=== PATIENT | male | born 1990 | race Caucasian/White ===

== ENCOUNTER 2024-01-24 20:23 | Emergency (ER) | payer BC, SELFPAY ==
[2024-01-24 20:25] VITALS: BP 169/108
--- NOTE | 2024-01-24 22:22 | ED.GENMED ---
History of Present Illness
General
Chief Complaint: Abdominal Pain
Source: patient
Exam Limitations: none
Time Seen by Provider: 01/24/24 21:58
Travel History
Have you had any contact with someone who has COVID-19?: No
Do you have any symptoms of coronavirus? Fever > 100 degrees, chills, cough, shortness of breath, sore throat, loss of taste or smell, muscle aches, or headache?: No
History of Present Illness
History of Present Illness:
This is a 33 year old male that comes in with c/o left flank pain and SOB. States that he was at work and started with pain around 8pm. State that the pain has been constant since that time. state that he also had left arm numbness and he felt like
his hand was cold. States that he also felt he was having trouble breathing and had to breath through his mouth as he felt he was not getting enough air through his nose. States that occasionally he had some left chest pain with the SOB. Denies any
fever, chills, abd pain, nausea, vomiting, diarrhea, headache, dizziness, urinary burning.
Past History
Past History
ED Past Medical History: Asthma and Other (Eczema)
ED Past Surgical History: None
Social History
Tobacco: Non-smoker
Alcohol: None
Personal: Single
Living: with family
Employment: Employed
Review of Systems
Review of Systems
All Other Systems: ROS reviewed and negative except as documented in HPI and ROS
Constitutional: Reports no symptoms; Denies fever or chills
EENT: Reports no symptoms
Respiratory: Reports trouble breathing; Denies cough
Cardiac: Reports chest pain
ABD/GI: Reports no symptoms; Denies abdominal pain, nausea, vomiting or diarrhea
: Reports no symptoms; Denies dysuria, frequency or urgency
Musculoskeletal: Reports no symptoms
Skin: Reports no symptoms
Neurological: Reports no symptoms; Denies dizzy or headache
Psychiatric: Reports no symptoms
Phy Exam
General Physical Exam
General Presentation: well appearing and no apparent distress
General age: appears stated age
General Skin: warm and dry
General Habitus: normal
General Mental: alert
General Hydration: appears well hydrated
ENT Exam
ENT Exam: TM's normal, pharynx normal and neck supple
Eye Exam
Eye Exam: EOMI
Cardiovascular Exam
Cardiovascular Exam: regular rate/rhythm, no edema, no murmur and normal peripheral pulses
Pulmonary Exam
Pulmonary Exam: lungs clear, no respiratory distress, no rales, chest non tender, no crackles, no rhonchi, no wheezing and no cough
Gastrointestinal Exam
Gastrointestinal Exam: normal bowel sounds, non tender, soft, no organomegaly, no pulsatile mass and non distended
Musculoskeletal Exam
Musculoskeletal Exam: full ROM and no edema
Skin Exam
Skin Exam: normal color, warm/dry, no rash and no petechia
Psychiatric Exam
Psychiatric Exam: normal mood/affect
Course
Orders/Labs/Results
Orders:
Orders
01/24/24 20:27
EKG [Electrocardiogram (*1)] Urgent
Reason for Study: Tachycardia
01/24/24 20:28
EKG- Treatment ONCE
01/24/24 22:22
CR Chest - 2 Views Urgent
Comment:
Reason For Exam: SOB
01/24/24 22:29
Urinalysis Reflex To Culture Urgent
Ketorolac [Toradol] 30 mg IV NOW STA
01/24/24 22:35
Complete Blood Count/With Diff Urgent
Comprehensive Metabolic Panel Urgent
D-Dimer Urgent
Troponin I Urgent
Abnormal Lab Results
01/24/24
22:35
WBC 11.6 H 10^3/uL
(4.8-10.8)
Absolute Neuts (auto) 9.2 H 10^3/uL
(1.4-6.5)
Absolute Monos (auto) 0.7 H 10^3/uL
(0.1-0.6)
Neutrophils % 78.7 H %
(42.2-75.2)
Lymphocytes % 12.1 L %
(20.5-51.1)
Glucose 101 H mg/dl
(70-99)
01/24/24 22:35
01/24/24 22:35
WBC slightly elevated. Glucose nonfasting. D-dimer <0.27, Troponin <0.012,
Vital Signs
Initial and Last Documented VS:
Initial Vital Signs
Temp Pulse Resp BP Pulse Ox
98.4 F 141 16 169/108 98
01/24/24 20:25 01/24/24 20:25 01/24/24 20:25 01/24/24 20:25 01/24/24 20:25
Last Documented Vital Signs
Temp Pulse Resp BP Pulse Ox
98.4 F 141 16 169/108 98
01/24/24 20:25 01/24/24 20:25 01/24/24 20:25 01/24/24 20:25 01/24/24 20:25
MDM/Problems Addressed
Differential Diagnosis Includes:
PE, PNA, Musculoskeletal
MDM/Problems Addressed:
This is a 33 year old male that comes in with c/o left sided chest/flank pain. States that he feels like he is not getting enough air and that his left arm felt like there were pins and needles and his hand was cold.
Will check labs, urine. Chest X-ray and give Toradol
back into see patient. Explained that his D-dimer is negative along with his Troponin. Chest x-ray is normal. This is most likely musculoskeletal in nature. Patient works in a [employer]. Patient refused pain medication. Patient states that he is
fine when he is just laying there but when he moves he has some discomfort. This also is more consistent with Musculoskeletal pain. Will have patient use Tylenol or Ibuprofen for pain . Follow up with the PCP. Return with any concerns.
Chronic conditions affecting care:
NA
Acute Exacerbation and/or Progression of Chronic Illness:
NA
*Radiology
Radiology exam reviewed: preliminary read by ED provider (Chest- Negative for active disease)
*Pulse Oximetry
Patient hypoxic: no
*EKG
Interpreted by ED Provider?: Yes
Heart Rate: 108
Rate: tachycardiac
Rhythm: sinus tachycardia
[place]: normal axis
Interval: normal interval
Ischemia: non-specific ST changes (V4, V5, V6)
*Critical Care Note
Total Time (30-74mins, 75-104mins- exclusive of procedures): Not Applicable
ED Attending Note
-
Portions of this chart may have been created with voice recognition software.� Occasional wrong word or��sound alike� substitutions may have occurred due to the inherent limitations of voice recognition software.
Discharge Plan
Departure
Patient Disposition: Home (Routine Discharge)
Date of Disposition: 01/25/24
Time of Disposition: 00:19
Patient with high blood pressure during this ER visit?: Yes
Condition: Good
Covid-19: Not Applicable
Discharge Problem:
Musculoskeletal chest pain
Instructions: BLOOD PRESSURE, Musculoskeletal Pain
Prescriptions:
No Action
fluticasone propion-salmeterol [Advair Diskus] 1 DISK blister with device
1 puff inhalation R Q12 Qty: 1 1RF
albuterol sulfate [Proventil HFA] 90 MCG/PUFF HFA aerosol inhaler
1 puff inhalation Q4HPRN PRN (Reason: prn for shortness of breath) Qty: 1 0RF
prednisone 10 MG tablet
10 mg PO .TAPER Qty: 45 0RF
Rx Instructions:
Take 50mg daily x3days, 40mg daily x3days,
30mg daily x3days, 20mg daily x3days,
10mg daily x3days
triamcinolone acetonide 1 APPLIC cream
1 applic topical BID Qty: 1 1RF
hydroxyzine HCl 25 MG tablet
25 mg PO TID Qty: 21 0RF
Referrals:
NONE,* [Family Provider] -
Activity Restrictions/Additional Instructions:
As discussed, your blood work shows that your WBC are only very slightly elevated. This can happen with stress. Your Chest X-ray is normal along with your Troponin which is specific for the heart and your D-dimer. You may use Tylenol or Ibuprofen
for any pain. Follow up with the family doctor for recheck. IF YOU HAVE INCREASED OR CHANGING PAIN, OR YOU HAVE ANY OTHER CONCERNS PLEASE RETURN TO THE EMERGENCY ROOM.
Interventions
Interventions:
*Risk Screen - Suicide Last Done: 01/24/24 20:25
*General Assessment Last Done: 01/24/24 20:25
*Neglect/Abuse Screening Last Done: 01/24/24 20:25
*ED COVID-19 Vaccine History Last Done: 01/24/24 20:25
JG-Apvvby-[id number] Assessment Last Done: 01/24/24 22:38
[2024-01-24 22:26] VITALS: BP 144/71
[2024-01-24 22:41] LABS: % Basophils 0.8 % (0-2); % Eosinophils 2.6 % (0-6); % Immature Granulocytes 0.2 % (0-0.5); % Lymphocytes 12.1 % (20.5-51.1); % Monocytes 5.6 % (1.7-9.3); % Neutrophils 78.7 % (42.2-75.2); Absolute Basophils 0.1 10^3/uL (0-0.2); Absolute Eosinophils 0.3 10^3/uL (0-0.7); Absolute Lymphocytes 1.4 10^3/uL (1.2-3.4); Absolute Monocytes 0.7 10^3/uL (0.1-0.6); Absolute Neutrophils 9.2 10^3/uL (1.4-6.5); Hemoglobin 14.5 g/dL (13.0-18.0); Mean Corp Hgb Conc. 34.5 g/dL (33.0-37.0); Mean Corpuscular Hgb 29.4 pg (27.0-31.0); Mean Corpuscular Volume 85.2 fL (80.0-94.0); Mean Platelet Volume 10.2 fL (7.4-10.4); Nucleated Red Blood Cells % 0 % (-); Platelet Count 373 10^3/uL (130-400); Red Blood Cell Count 4.93 10^6/uL (4.70-6.10); Red Cell Dist. Width 12.3 % (11.5-14.5); White Blood Cell Count 11.6 10^3/uL (4.8-10.8)
[2024-01-24 22:54] LABS: D-Dimer < 0.27 ug/mlFEU (0.00-0.50)
[2024-01-24 23:00] VITALS: BP 124/86
[2024-01-24 23:02] LABS: ALT (SGPT) 23 U/L (0-50); AST (SGOT) 29 U/L (17-59); Albumin 4.6 g/dl (3.5-5.0); Alkaline Phosphatase 72 U/L (38-126); Blood Urea Nitrogen 12 mg/dl (9-20); Calcium 9.7 mg/dl (8.4-10.2); Carbon Dioxide 24 mmol/L (22-30); Chloride 101 mmol/L (98-107); Glucose 101 mg/dl (70-99); Potassium 3.6 mmol/L (3.5-5.1); Sodium 136 mmol/L (135-145); Total Bilirubin 0.7 mg/dl (0.2-1.3); Total Protein 7.4 g/dl (6.3-8.2); eGFR > 60.00
[2024-01-24 23:05] LABS: Troponin I < 0.012 ng/ml
== END 2024-01-25 00:33 | disposition home or self-care (01) ==
LOC: EMR 20:23
PROVIDERS: Clinical Nurse Specialist Family Health; Emergency Medicine; EMERGENCY PHYSICIAN Emergency Medicine
DX: R10.9 Unspecified abdominal pain (principal); J45.909 Unspecified asthma, uncomplicated; L30.9 Dermatitis, unspecified; R07.89 Other chest pain
CPT/HCPCS: 99283; 96374; 71046; 80053; 84484; 85025; 85379; 93005